=== PATIENT | female | born 1985 | race Caucasian/White ===

== ENCOUNTER 2021-01-23 10:01 | Observation (INO) ==
[2021-01-23 11:00] LABS: Bilirubin,Urine Negative (Negative); Blood,Urine Moderate (Negative); Clarity,Urine Clear (Clear); Color,Urine Yellow (Yellow); Glucose,Urine (UA) Normal (Normal); Ketones,Urine Negative (Negative); Leukocyte Esterase,Urine Small (Negative); Mucus,Urine Few per lpf (None-Few); Nitrite,Urine Negative (Negative); PH,Urine 7.5 pH Units (5.0-8.0); Protein,Urine 30 mg/dL (Neg-Trace); RBC,Urine 50-100 per hpf (0-3); Specific Gravity,Urine 1.019 (1.010-1.025); Squamous Epithelial Cell,Urine Few per hpf (None-Few); Urobilinogen,Urine Normal (Normal)
[2021-01-23 11:03] LABS: Basophils % 0.4 %; Eosinophils % 0.1 %; Hematocrit 44.7 % (35.3-44.9); Hemoglobin 15.2 g/dL (11.5-15.4); Immature Granulocytes % 0.4 % (0-4); Lymphocytes % 12.8 %; Mean Platelet Volume 10.3 fL (9.4-12.4); Monocytes # 0.2 K/mcL (0.0-1.3); Monocytes % 2.3 %; Neutrophils # 6.9 K/mcL (1.6-8.9); Platelet Count 347 K/mcL (140-400); Red Blood Count 4.91 M/mcL (3.82-4.97); Red Cell Distribution Width 12.3 % (11.5-14.5); White Blood Count 8.2 K/mcL (4.3-11.1)
[2021-01-23 11:24] LABS: Alanine Aminotransferase 25 Units/L (7-52); Albumin 4.2 g/dL (3.5-5.7); Albumin/Globulin Ratio 1.2 (1.1-2.2); Alkaline Phosphatase 45 Units/L (34-104); Aspartate Amino Transferase 25 Units/L (13-39); BUN/Creatinine Ratio 17 (6-26); Bilirubin,Direct 0.1 mg/dL (0.0-0.2); Bilirubin,Indirect 0.4 mg/dL (0.0-1.0); Bilirubin,Total 0.5 mg/dL (0.3-1.0); Blood Urea Nitrogen 11 mg/dL (6-20); Calcium 9.1 mg/dL (8.6-10.3); Carbon Dioxide 25 mEq/L (23-29); Chloride 102 mEq/L (98-107); Globulin 3.5 g/dL (2.4-3.5); Glucose 108 mg/dL (70-105); Lipase 11 Units/L (11-82); Osmolality,Calculated 284 (280-300); Potassium 3.9 mEq/L (3.5-5.1); Sodium 137 mEq/L (136-145); Total Protein 7.7 g/dL (6.4-8.9); eGFR For African Americans > 60 (> 60); eGFR For Non-African Americans > 60 (> 60)
[2021-01-23] MEDS ORDERED: Isovue-370 500 ML BOTTLE IVP ONE (11:31)
[2021-01-23] MEDS ORDERED: Ringers Solution, Lactated 500 ML IVC ONE (11:32)
[2021-01-23] MEDS ORDERED: Ondansetron 4 MG/2 ML VIAL IVP ONE (11:32)
[2021-01-23] MEDS ORDERED: Ketorolac 15 MG/ML VIAL IVP ONE (11:32)
[2021-01-23] MEDS ORDERED: Melatonin 3 MG TABLET PO PRN (15:45)
[2021-01-23] MEDS ORDERED: Naloxone 0.4 MG/ML INJ IVP PRN (15:45)
[2021-01-23] MEDS ORDERED: Ondansetron ODT 4 MG TAB.RAPDIS SL PRN (15:45)
[2021-01-23] MEDS ORDERED: Mag Hydrox/Al Hydrox/Simeth 30 ML UDC PO PRN (15:45)
[2021-01-23] MEDS: Ketorolac 15 MG/ML VIAL IVP PRN ×2 (16:23→23:08)
[2021-01-23] MEDS: Ringers Solution, Lactated 1,000 ML IVC SCH (16:23)
[2021-01-23] MEDS: cefTRIAXone 1,000 MG in Water for inj. (sterile) 10 ML IVP SCH (17:17)
[2021-01-24] MEDS: Ringers Solution, Lactated 1,000 ML IVC SCH ×3 (05:05→13:39)
[2021-01-24 05:41] LABS: Hemoglobin 13.3 g/dL (11.5-15.4); Mean Corpuscular Volume 91.6 fL (83.0-100.0); Mean Platelet Volume 10.4 fL (9.4-12.4); Platelet Count 289 K/mcL (140-400); Red Blood Count 4.15 M/mcL (3.82-4.97); Red Cell Distribution Width 12.5 % (11.5-14.5); White Blood Count 5.9 K/mcL (4.3-11.1)
[2021-01-24 06:01] LABS: BUN/Creatinine Ratio 16 (6-26); Blood Urea Nitrogen 10 mg/dL (6-20); Calcium 8.4 mg/dL (8.6-10.3); Carbon Dioxide 26 mEq/L (23-29); Chloride 108 mEq/L (98-107); Glucose 96 mg/dL (70-105); Osmolality,Calculated 289 (280-300); Potassium 3.6 mEq/L (3.5-5.1); Sodium 140 mEq/L (136-145); eGFR For African Americans > 60 (> 60); eGFR For Non-African Americans > 60 (> 60)
[2021-01-24] MEDS: cefTRIAXone 1,000 MG in Water for inj. (sterile) 10 ML IVP SCH (09:09)
[2021-01-24] MEDS: Ketorolac 15 MG/ML VIAL IVP PRN (11:27)
[2021-01-24] MEDS ORDERED: Ondansetron 4 MG/2 ML VIAL IVP PRN (14:11)
[2021-01-24] MEDS ORDERED: *HR* HYDROmorphone PF 0.5 MG/0.5 ML SYRINGE IVP PRN (14:11)
[2021-01-24] MEDS ORDERED: Isovue-300 50ML VIAL ONE (15:15)
[2021-01-24] MEDS ORDERED: Lidocaine -MPF 2% 2 ML VIAL ONE (15:20)
[2021-01-24] MEDS ORDERED: *HR* Propofol 200 MG/20 ML VIAL IVP ONE (15:20)
[2021-01-24] MEDS ORDERED: *HR* Midazolam HCl 2 MG/2 ML VIAL ONE (15:20)
[2021-01-24] MEDS ORDERED: *HR* FentaNYL (PF) 100 MCG/2 ML VIAL ONE (15:20)
[2021-01-24] MEDS ORDERED: Ondansetron 4 MG/2 ML VIAL ONE (15:40)
[2021-01-24] MEDS ORDERED: Ketorolac 30 MG/ML VIAL ONE (15:49)
[2021-01-24] MEDS ORDERED: *HR* HYDROMORPHONE 2 MG/ML VIAL ONE (15:57)
[2021-01-24] MEDS ORDERED: Metoclopramide 10 MG/2 ML VIAL ONE (16:35)
[2021-01-24] MEDS: *HR* FentaNYL (PF) 100 MCG/2 ML VIAL IVP PRN ×2 (16:55→17:29)
[2021-01-24] MEDS ORDERED: Acetaminophen IV 1,000 MG/100 ML BAG IVPB ONE (16:57)
[2021-01-24] MEDS ORDERED: *HR* Labetalol 20 MG/4 ML SYRINGE IVP ONE ×3 (17:11→17:21)
[2021-01-24 18:17] VITALS: TEMP 98.1
[2021-01-24 18:57] VITALS: BP 133/84; PULSE 105
[2021-01-24 18:58] VITALS: O2SAT 97
[2021-01-29 18:48] LABS: Calculi Mass 28 mg
== END 2021-01-24 21:13 | disposition home or self-care (01) ==
LOC: 3BNU 10:01 → EMEROOARM 10:01 → SUATTDRO 15:40 → 3BNU 16:45
PROVIDERS: ADMIT Family Medicine; ATTEND Family Medicine